=== PATIENT | female | born 1975 | race Caucasian/White ===

== ENCOUNTER → 2020-10-30 | Day surgery (SDC) | payer BC, OTHER ==
[~2020-10-30] VITALS: Ht 157.5 cm; Wt 77.1 kg
[~2020-10-30] MED LIST: AMLODIPINE BESY10 MG PO; DIFLUCAN150 MG PO; DOXYCYCLINE 10100 M2 PO; HYDROCHLOROTHIA25 M1 PO; HYDROCODON-ACE1 EAC7 PO; MINOXIDIL2.5 MG PO; SPIRONOLACTONE100 M1 PO
[2020-10-30 12:15] VITALS: BP 126/71
[2020-10-30 12:17] LABS: CALCIUM 8.8 mg/dL (8.5-10.1); CREATININE 1.4 mg/dL (0.6-1.0); POTASSIUM 4.1 mmol/L (3.5-5.1)
--- NOTE | 2020-10-30 12:36 | EKG ---
[address] [address] ELECTROCARDIOGRAM REPORT Name: JOAQUIN WYMAN Room #: [facility].#: [id number] Admission: 10/30/20 Attend Phys: Joshua Gonzalez MD Discharge: Date of : 73 Report #: [id number] [facility] Test Date: 2020-10-30 Test Time: 12:22:12 Pat Name: JOAQUIN WYMAN Department: Room: Gender: F [employer] Chief: TONIA : 1975 Requested By: Joshua Gonzalez Order Number: [id number] MD: Willian Paez Measurements Intervals Apollo Rate: 77 P: 65 FL: 190 QRS: 28 QRSD: 78 T: 31 QT: 372 QTc: 421 Interpretive Statements Sinus rhythm No previous ECG available for comparison Electronically Signed On 10-30-2020 12:36:36 CDT by Willian Paez [email or web address] <ELECTRONICALLY SIGNED> By: Willian Paez MD, [facility] 10/30/20 1236 1222 1222 Willian Paez MD, FACC /EPI
[2020-10-30 14:51] VITALS: BP 126/71
--- NOTE | 2020-10-31 12:33 | O ---
[facility] [place] [address] [place] [address] OPERATIVE REPORT Name: JOAQUIN WYMAN Room #: [facility]..#: [id number] Admission: 10/30/20 Attend Phys: Joshua Gonzalez MD Discharge: Date of : 73 Report #: [id number] THIS REPORT FOR: cc: Tam Kemp Steven F. DO Chu, Peter Y. MD ~ DATE OF SERVICE: 10/30/2020 PREOPERATIVE DIAGNOSIS: Hidradenitis recurrent infection, left groin. POSTOPERATIVE DIAGNOSIS: Hidradenitis recurrent infection, left groin. PROCEDURE PERFORMED: Wide excision of recurrent infected hidradenitis, left groin. ANESTHESIA: IV sedation with local 0.25% Marcaine. COMPLICATIONS: None. BLOOD LOSS: 30 mL. DESCRIPTION OF PROCEDURE: With the patient under IV sedation, the left groin is prepped and draped in sterile fashion. The patient received preoperative IV antibiotics. An ellipse was drawn around the chronic infected thickened skin. This is in the mid part of the left groin. The skin and subcutaneous tissue was then anesthetized with 0.25% Marcaine, total about 30 mL was used, both superficially and also deep. The full thickness of skin and quite a bit of subcutaneous tissue under the skin was excised. The thickened area is included in the specimen. The skin ellipse measures 2.5 x 4 cm. At the bottom, there is a blood vessel that was controlled with 3-0 Vicryl suture. Otherwise, the hemostasis was obtained with cautery. The subcutaneous tissue was brought together with 3-0 Vicryl in interrupted fashion. Skin was closed with 4-0 nylon in a running locking fashion. Hemostasis obtained. Antibiotic ointment, 4 x 4 tape was applied. The patient was awakened and taken to recovery room, tolerated the procedure well. <ELECTRONICALLY SIGNED> By: Joshua Gonzalez MD 10/31/20 1233 0948 1013 Joshua Gonzalez MD /nt
== END | disposition home or self-care (01) ==
LOC: OR 08:19
PROVIDERS: ATTEND Surgery
DX: L73.2 Hidradenitis suppurativa (principal); I10 Essential (primary) hypertension; Z98.890 Other specified postprocedural states; Z20.822 Contact with and (suspected) exposure to COVID-19; Z79.899 Other long term (current) drug therapy
CPT/HCPCS: 50010; 50101; 50386; 50403; 56524; 56526; 62110; 62850; 70005